=== PATIENT | female | born 1960 | race African-American/Black ===

== ENCOUNTER 2021-11-16 22:27 | Emergency (ER) | payer MEDICAID ==
[~2021-11-16] VITALS: Ht 165.1 cm; Wt 82.0 kg
[2021-11-17 01:43] VITALS: BP 138/92
== END 2021-11-17 01:53 | disposition home or self-care (01) ==
LOC: ER 22:27
DX: S50.11XA Contusion of right forearm, initial encounter (principal); E78.00 Pure hypercholesterolemia, unspecified; J45.909 Unspecified asthma, uncomplicated; I11.0 Hypertensive heart disease with heart failure; I50.9 Heart failure, unspecified; J44.9 Chronic obstructive pulmonary disease, unspecified; Z95.0 Presence of cardiac pacemaker; Z91.013 Allergy to seafood; Y04.0XXA Assault by unarmed brawl or fight, initial encounter; Y07.499 Other family member, perpetrator of maltreatment and neglect; Y93.89 Activity, other specified; Y92.018 Other place in single-family (private) house as the place of occurrence of the external cause
CPT/HCPCS: 73090; 99283